=== PATIENT | female | born 1995 | race Caucasian/White ===

== ENCOUNTER 2016-10-21 20:19 | Emergency (ER) | payer MEDICAID ==
[~2016-10-21] VITALS: Wt 78.5 kg
[~2016-10-21 20:19] MED LIST: no meds
[2016-10-21 22:59] LABS: ADD UMIC YES; URINE BILIRUBIN (Dip) NEGATIVE (NEGATIVE); URINE BLOOD (Dip) TRACE (NEGATIVE); URINE COLOR LT. YELLOW (YELLOW); URINE GLUCOSE (Dip) NEGATIVE (NEGATIVE); URINE KETONES (Dip) NEGATIVE (NEGATIVE); URINE LEUKOCYTE ESTERASE (Dip) NEGATIVE (NEGATIVE); URINE NITRITE (Dip) NEGATIVE (NEGATIVE); URINE TOTAL PROTEIN (Dip) NEGATIVE (NEGATIVE); URINE UROBILINOGEN (Dip) 2.0 E.U./dL (0.1-1.0)
[2016-10-21 23:08] LABS: SQUAMOUS EPITHELIAL CELL,UR RARE; URINE RBCS 0-2 /HPF (0)
[2016-10-22] MEDS ORDERED: METH-70 PO (00:50)
[2016-10-22] MEDS ORDERED: HYDR-905 PO (00:50)
[2016-10-22] MEDS ORDERED: NAPR-688 PO (00:50)
[2016-10-22] MEDS ORDERED: KETOROLAC 60 MG INJ IM STA (01:01)
[2016-10-22 01:43] VITALS: BP 118/70; PULSE 66; RESP 20; TEMP 98.3
--- NOTE | 2016-10-22 02:28 | RADRPT ---
PROCEDURE: US Pelvis. CLINICAL INDICATION: Pelvic pain. Last menstrual period 09/13/2016 TECHNIQUE: Multiple sonographic images of the pelvis were obtained utilizing a transabdominal and endovaginal technique. The images were reviewed on a PACS workstation. COMPARISON: 12/02/2014 FINDINGS: The uterus measures 6.6 x 2.7 x 3.5 cm and is unremarkable. The thickness of the endometrium equals 3.2 mm. The right ovary measures 2.5 x 1.3 x 2.2 cm and is unremarkable. The left ovary measures 3 x 1.6 x 2.1 cm and is unremarkable. Color flow and spectral analysis demonstrates normal arterial f low in both ovaries. No adnexal mass or free intrapelvic fluid is seen. IMPRESSION: No abnormality seen. Please see above. RPTAT: HJES .Hernan Hart MD, MD Date Time Electronically viewed and signed by .Hernan Hart MD, on 10/22/2016 02:27 .S/
--- NOTE | 2016-10-22 05:51 | ERD ---
ER Documentation Chief Complaint Date/Time DATE: 10/22/16 TIME: 05:47 Chief Complaint Pelvic pain and Flank pain X3 days HPI This 21-year-old female presents with suprapubic pain as well as right-sided back pain for 3 days. States that she gets of back spasm from time to time and is worse at work when she is sitting for a while. Also states that she has pressure-like suprapubic pain and has had mild vaginal bleeding that is not currently on her period. She denies fevers and chills. Denies recent trauma. ROS All systems reviewed and are negative except as per history of present illness. Medications Home Meds Active Scripts Naproxen* (Naproxen*) 500 Mg Tablet, 500 MG PO BID, #20 TAB Prov:ZOE LYLES DO 10/22/16 Methocarbamol* (Robaxin*) 750 Mg Tablet, 750 MG PO Q6H Y for MUSCLE SPASMS, #20 TAB Prov:ZOE LYLES DO 10/22/16 Hydrocodone/Acetaminophen ([place] 7.5-325 Tablet) 1 Each Tablet, 1 EACH PO Q6, # 14 TAB Prov:RAFALZOE 10/22/16 Reported Medications [no meds] No Conflict Check 10/07/10 Allergies Allergies: Coded Allergies: No Known Drug Allergies (Verified Allergy, Mild, 12/02/14) PMhx/Soc Medical and Surgical Hx: pt denies Medical Hx, pt denies Surgical Hx History of Surgery: No Anesthesia Reaction: No Hx Neurological Disorder: No Hx Respiratory Disorders: No Hx Cardiac Disorders: No Hx Psychiatric Problems: No Hx Miscellaneous Medical Probl: No Hx Alcohol Use: No Hx Substance Use: No Hx Tobacco Use: No Smoking Status: Never smoker Physical Exam Vitals Vital Signs Date Time Temp Pulse Resp B/P Pulse Ox O2 Delivery O2 Flow Rate FiO2 10/22/16 01:43 98.3 66 20 118/70 99 Room Air 10/21/16 20:53 99.2 104 20 123/68 99 Physical Exam Const: [] No distress Head: Atraumatic Eyes: Normal Conjunctiva ENT: Normal External Ears, Nose and Mouth. Neck: Full range of motion..~ No meningismus. Abd: Soft, mild suprapubic tenderness without guarding or rebound, non distended. Normal bowel sounds Skin: No petechiae or rashes Back: No midline tenderness, left-sided lower thoracic paraspinal muscle spasm on right side with mild tenderness it patient says is the area where she has the back pain. Neur: Awake and alert and oriented 3, no focal deficits Psych: Normal Mood and Affect Results 24 hrs Laboratory Tests Test 10/21/16 22:43 Urine Color LT. YELLOW Urine Clarity CLEAR Urine pH 7.5 Urine Specific Hasty 1.015 Urine Ketones NEGATIVE Urine Nitrite NEGATIVE Urine Bilirubin NEGATIVE Urine Urobilinogen 2.0 E.U./dL Urine Leukocyte Esterase NEGATIVE Urine Microscopic RBC 0-2/HPF Urine Microscopic WBC 0-2/HPF Urine Squamous Epithelial Cells RARE Urine Hemoglobin TRACE Urine Glucose NEGATIVE% Urine Total Protein NEGATIVE Current Medications Medications (Trade) Dose Ordered Sig/Salvatore Route PRN Reason Start Time Stop Time Status Last Admin Dose Admin Ketorolac Tromethamine (Toradol) 60 mg ONCE STAT IM 10/22/16 01:01 10/22/16 01:02 DC 10/22/16 01:34 Procedures/MDM Nontraumatic muscle spasm of paraspinal back muscles. Patient also has abnormal uterine bleeding is negative for blood in her urine or urinary tract infection. Ultrasound was also performed which is negative for acute process. Preliminary read according to the technologist reportedly showed a single facet follicular ovarian cyst may be causing the patient's pain. Cyst is not mentioned on the radiology report. Recommend follow-up with a wheel grinder and primary care doctor. Discharging with naproxen, [place], Robaxin to stop the back spasm. Pelvic ultrasound interpretation: No acute process identified in the pelvis. Visualized ovaries with normal uterus with no fibroids. Departure Diagnosis: Primary Impression: Abnormal vaginal bleeding Additional Impressions: Suprapubic pain Ovarian cyst Back muscle spasm Condition: Stable Patient Instructions: Abdominal Pain, Unknown Cause, (Female), Back Spasm, No Trauma, Dysfunctional Uterine Bleeding, Ovarian Cyst Referrals: COMM[facility]ITY CLIN[facility] YOU HAVE RECEIVED A MEDICAL SCREENING EXAM AND THE RESULTS INDICATE THAT YOU DO NOT HAVE A CONDITION THAT REQUIRES URGENT TREATMENT IN THE EMERGENCY DEPARTMENT. FURTHER EVALUATION AND TREATMENT OF YOUR CONDITION CAN WAIT UNTIL YOU ARE SEEN IN YOUR DOCTORS OFFICE WITHIN THE NEXT 1-2 DAYS. IT IS YOUR RESPONSIBILITY TO MAKE AN APPOINTMENT FOR FOLOW-UP CARE. IF YOU HAVE A PRIMARY DOCTOR --you should call your primary doctor and schedule an appointment IF YOU DO NOT HAVE A PRIMARY DOCTOR YOU CAN CALL OUR PHYSICIAN REFERRAL HOTLINE AT IF YOU CAN NOT AFFORD TO SEE A PHYSICIAN YOU CAN CHOSE FROM THE FOLLOWING [facility] [address] [facility] [address] [facility] [address] [facility] [address] [facility]. [facility] [address] [facility]. [facility]. [address] Additional Instructions: Call your primary care doctor TOMORROW for an appointment during the next 2-3 days.See the doctor sooner or return here if your condition worsens before your appointment time. ZOE LYLES DO October 22, 2016 05:51
== END 2016-10-22 01:43 | disposition home or self-care (01) ==
LOC: FTE 20:19
DX: N93.9 Abnormal uterine and vaginal bleeding, unspecified (principal); R10.30 Lower abdominal pain, unspecified; N83.209 Unspecified ovarian cyst, unspecified side; M62.830 Muscle spasm of back
CPT/HCPCS: 76830; 76856; 81001; 96372; J1885; Z7502; 81003

== ENCOUNTER 2016-12-23 18:02 | Emergency (ER) | payer MEDICAID ==
[~2016-12-23] VITALS: Wt 79.0 kg
[~2016-12-23 18:02] MED LIST changes: +HYDR-905 PO; +METH750T93 PO; +NAPR-688 PO
[2016-12-23] MEDS ORDERED: ACETAMINOPHEN 500 MG TAB PO STA (19:05)
[2016-12-23] MEDS ORDERED: LIDOCAINE 1% (MDV) 20 ML INJ SC ONE (19:30)
[2016-12-23] MEDS ORDERED: IBUP-1542 PO (19:33)
--- NOTE | 2016-12-23 19:36 | ERD ---
ER Documentation Chief Complaint Date/Time DATE: 12/23/16 TIME: 19:34 Chief Complaint RIGHT HAND 5TH DIGIT ACRYLIC NAIL W/ OWN NAIL BROKE OFF HPI This 21-year-old female sustained a injury to the nail on her right fifth digit. She has acrylic nails and the nail was pried backwards avulsing a portion of her normal nail. She complains of pain. She has no active bleeding , restricted range of motion or weakness. ROS All systems reviewed and are negative except as per history of present illness. Medications Home Meds Active Scripts Ibuprofen* (Motrin*) 600 Mg Tab, 600 MG PO Q6, #15 TAB Prov:GENARO BRICEÑO MD 12/23/16 Naproxen* (Naproxen*) 500 Mg Tablet, 500 MG PO BID, #20 TAB Prov:ZOE LYLES DO 10/22/16 Methocarbamol* (Robaxin*) 750 Mg Tablet, 750 MG PO Q6H Y for MUSCLE SPASMS, #20 TAB Prov:ZOE LYLES DO 10/22/16 Hydrocodone/Acetaminophen ([place] 7.5-325 Tablet) 1 Each Tablet, 1 EACH PO Q6, # 14 TAB Prov:ZOE LYLES DO 10/22/16 Reported Medications [no meds] No Conflict Check 10/07/10 Allergies Allergies: Coded Allergies: No Known Drug Allergies (Verified Allergy, Mild, 12/02/14) PMhx/Soc History of Surgery: No Anesthesia Reaction: No Hx Neurological Disorder: No Hx Respiratory Disorders: No Hx Cardiac Disorders: No Hx Psychiatric Problems: No Hx Miscellaneous Medical Probl: No Hx Alcohol Use: No Hx Substance Use: No Hx Tobacco Use: No Smoking Status: Never smoker Physical Exam Vitals Vital Signs Date Time Temp Pulse Resp B/P Pulse Ox O2 Delivery O2 Flow Rate FiO2 12/23/16 18:06 98.7 77 18 129/75 100 Physical Exam Const: [], [id number] per Head: Atraumatic Eyes: Normal Conjunctiva ENT: Normal External Ears, Nose and Mouth. Neck: Full range of motion..~ No meningismus. Resp: Clear to auscultation bilaterally Cardio: Regular rate and rhythm, no murmurs Abd: Soft, non tender, non distended. Normal bowel sounds Skin: No petechiae or rashes Back: No midline or flank tenderness Ext: No cyanosis, or edema. The right fifth digit has a extended acrylic nail. It is mobile suggesting a partial avulsion of the biologic nail. Neur: Awake and alert Psych: Normal Mood and Affect Results 24 hrs Current Medications Medications (Trade) Dose Ordered Sig/Salvatore Route PRN Reason Start Time Stop Time Status Last Admin Dose Admin Acetaminophen (Tylenol Tab) 500 mg ONCE STAT PO 12/23/16 19:05 12/23/16 19:07 DC 12/23/16 19:12 Lidocaine (Xylocaine 1% (Mdv) 20 ml) 20 ml ONCE ONCE SC 12/23/16 19:30 12/23/16 19:31 DC 12/23/16 19:13 Procedures/MDM Patient is given Tylenol for pain. The right fifth digit was prepped with Betadine. 1 cc lidocaine was used to perform a digital block. The acrylic nail was removed. The biologic nail is in place after removing the acrylic nail. There is no evidence of active bleeding, erythema, deformities. A Band- Aid was used as a dressing. Patient presents with a partial nail avulsion right fifth digit. She will be discharged home instructions for wound care and instructed to return for redness , fevers, new worsening symptoms otherwise patient counseled that biologic nail likely to fall off and a new one will grow out. There is no evidence to suggest nail bed injury or additional complications. Departure Diagnosis: Primary Impression: Nail avulsion Encounter type: initial encounter Qualified Code: S61.309A - Nail avulsion, initial encounter Condition: Stable Patient Instructions: Nail Avulsion, Partial Additional Instructions: Recheck for new or worsening symptoms-redness, bleeding, fever. Nail likely to fall off. GENARO BRICEÑO MD Dec 23, 2016 19:36
== END 2016-12-23 19:41 | disposition home or self-care (01) ==
LOC: FTE 18:02
DX: S61.306A Unspecified open wound of right little finger with damage to nail, initial encounter (principal); X58.XXXA Exposure to other specified factors, initial encounter; Y92.9 Unspecified place or not applicable
CPT/HCPCS: 11730; Z7502; Z7610

== ENCOUNTER 2018-05-06 10:35 | Emergency (ER) | END 2018-05-06 13:42 | disposition home or self-care (01) ==